=== PATIENT | female | born 1990 | race African-American/Black ===

== ENCOUNTER 2019-05-19 11:19 | Emergency (ER) | payer OTHER ==
--- NOTE | 2019-05-19 11:31 | ER Document Report ---
ED Medical Screen (RME) - General Chief Complaint: Vag Bleeding, +preg <12wks Stated Complaint: ABDOMINAL CRAMPS/VAGINAL BLEEDING Time Seen by Provider: 05/19/19 11:28 Notes: Patient is a 28-year-old female G7, P6 presents to the emergency department for vaginal bleeding. Patient voices she thinks she is approximately 8 weeks . She did go to her [facility] who recently did an ultrasound measuring approximately 5 weeks. Patient voices this morning she had some generalized lower abdominal cramping and when she wiped after using the restroom saw bright red blood. Patient voices she did place a pad but has not soaked through said pad. GENERAL: Alert, interacts well. No acute distress. LUNGS: Clear to auscultation bilaterally, no wheezes, rales, or rhonchi. No respiratory distress. ABDOMEN: Soft, non-tender. Non-distended. Bowel sounds present in all 4 quadrants. I have greeted and performed a rapid initial assessment of this patient. A comprehensive ED assessment and evaluation of the patient, analysis of test results and completion of the medical decision making process will be conducted by additional ED providers. I have specifically instructed the patient or family members with the patient to immediately return to any nursing staff should anything change in the patient's condition or with their chief complaint. This medical record was dictated with voice recognizing software. There may be grammatical, syntax errors that are unintended. - Related Data Allergies/Adverse Reactions: lactose Allergy (Verified 05/19/19 11:27) latex Allergy (Verified 05/19/19 11:27) No Known Drug Allergies Allergy (Verified 05/19/19 11:27) Physical Exam - Vital signs Vitals: Temp Pulse BP Pulse Ox 97.9 F 66 116/71 100 05/19/19 11:26 05/19/19 11:26 05/19/19 11:26 05/19/19 11:26 Course - Vital Signs Vital signs: Temp Pulse Resp BP Pulse Ox 97.9 F 66 116/71 100 05/19/19 11:26 05/19/19 11:26 05/19/19 11:26 05/19/19 11:26
[2019-05-19 12:42] LABS: ABSOLUTE BASOPHILS # (AUTO) 0.1 10^3/uL (0.0-0.2); ABSOLUTE EOSINOPHILS # (AUTO) 0.4 10^3/uL (0.0-0.6); ABSOLUTE LYMPHOCYTES (AUTO) 1.8 10^3/uL (0.5-4.7); ABSOLUTE MONOCYTES (AUTO) 0.5 10^3/uL (0.1-1.4); ABSOLUTE NEUT (AUTO) 7.3 10^3/uL (1.7-8.2); BASOPHILS % (AUTO) 0.5 % (0-2); EOSINOPHILS % (AUTO) 3.8 % (0-6); HEMATOCRIT 38.2 % (36.0-47.0); LYMPHOCYTES % (AUTO) 17.7 % (13-45); MEAN CORPUSCULAR HEMOGLOBIN 28.8 pg (27.0-33.4); MEAN CORPUSCULAR HGB CONC 34.1 g/dL (32.0-36.0); MEAN CORPUSCULAR VOLUME 85 fl (80-97); MONOCYTES % (AUTO) 4.9 % (3-13); PLATELET COUNT 318 10^3/uL (150-450); RED BLOOD COUNT 4.51 10^6/uL (3.72-5.28); SEGMENTED NEUTROPHILS % (AUTO) 73.1 % (42-78); TOTAL CELLS COUNTED % (AUTO) 100 %
[2019-05-19 12:53] LABS: APPEARANCE,URINE CLEAR; BILIRUBIN,URINE NEGATIVE (NEGATIVE); COLOR,URINE STRAW; GLUCOSE, URINE NEGATIVE (NEGATIVE); KETONES,URINE 20 mg/dL (NEGATIVE); LEUKOCYTE ESTERASE,URINE NEGATIVE (NEGATIVE); NITRITE,URINE NEGATIVE (NEGATIVE); PROTEIN,URINE NEGATIVE (NEGATIVE); URINE SPECIFIC GRAVITY 1.009; UROBILINOGEN,URINE NEGATIVE mg/dL (<2.0)
--- NOTE | 2019-05-19 12:54 | RADIOLOGY REPORT (SQ) ---
EXAM DESCRIPTION: U/S OB TRANSVAG W/DOPPLER COMPLETED DATE/TIME: 05/19/2019 12:22 pm REASON FOR STUDY: +preg and bleeding COMPARISON: None. TECHNIQUE: Transvaginal static and realtime grayscale images acquired of the pelvis. Additional nadia cted spectral and color Doppler images recorded. All images stored on PACs. bHCG: Pending. CLINICAL DATES: LMP 03/28/2019 7 weeks 3 days LIMITATIONS: None. FINDINGS: There is the appearance of an abnormal gestational sac. No pole is present. There is an 18 x 29 x 31 mm mass of mixed echogenicity either in the gestational sac or adjacent to it. UTERUS: See above. CERVICAL LENGTH: 2.7 cm. Closed. RIGHT ADNEXA: Normal ovary with normal vascular flow. 3.1 x 2.3 x 1.8 cm. No adnexal free fluid. No adnexal masses. LEFT ADNEXA: Normal ovary with normal vascular flow. 2.3 x 3.1 x 3.7 cm. There is an 18 x 18 x 24 m m cyst. No adnexal free fluid. No adnexal masses. FREE FLUID: None. OTHER: No other significant finding. IMPRESSION: No identifiable pole is seen. Cannot exclude a molar . Follow-up as cli nically indicated. TECHNICAL DOCUMENTATION: JOB ID: [id number] [email or web address]- All Rights Reserved rev Reading location - IP/workstation name: [email or web address]
[2019-05-19 13:01] LABS: ANION GAP 10 (5-19); BLOOD UREA NITROGEN 10 mg/dL (7-20); CALCIUM 9.3 mg/dL (8.4-10.2); CARBON DIOXIDE 24 mmol/L (22-30); CHLORIDE 103 mmol/L (98-107); GLUCOSE 80 mg/dL (75-110); POTASSIUM 4.1 mmol/L (3.6-5.0)
--- NOTE | 2019-05-19 13:02 | ER Document Report ---
ED GI/ - General Chief Complaint: Vag Bleeding, +preg <12wks Stated Complaint: ABDOMINAL CRAMPS/VAGINAL BLEEDING Time Seen by Provider: 05/19/19 11:28 Primary Care Provider: ROSMERY ORDAZ MD [Primary Care Provider] - Follow up as needed Notes: Patient is a 28-year-old female G7, P6 who presents to the emergency department with a chief complaint of vaginal bleeding. Patient reports this morning she felt some lower abdominal pressure and as she went to urinate she wiped with the toilet paper and noticed bright red blood on the tissue. Patient denies blood clots. Patient reports she did put a pad on afterwards but has not noticed any more bleeding. Patient reports she did have her last menstrual cycle on March 28. She reports that she did follow-up with [facility] on May 16 in which she did have an ultrasound. She states at that time she was told she was 5 weeks and 2 days . Patient reports that the lower abdominal cramping started today. Patient denies urinary symptoms. Patient denies vaginal discharge prior to the bleeding. TRAVEL OUTSIDE OF THE [place] IN LAST 30 DAYS: No - Related Data Allergies/Adverse Reactions: lactose Allergy (Verified 05/19/19 11:35) latex Allergy (Verified 05/19/19 11:35) No Known Drug Allergies Allergy (Verified 05/19/19 11:35) nut - unspecified Allergy (Verified 05/19/19 11:35) shellfish derived Allergy (Verified 05/19/19 11:35) Past Medical History - General Information source: Patient - Social History Smoking Status: Never Smoker Chew tobacco use (# tins/day): No Frequency of alcohol use: None Drug Abuse: None Lives with: Spouse/Significant other Family History: None Patient has suicidal ideation: No Patient has homicidal ideation: No - Past Medical History Cardiac Medical History: Reports: None Pulmonary Medical History: Reports: Hx Asthma EENT Medical History: Reports: None Neurological Medical History: Reports: None Endocrine Medical History: Reports: None Renal/ Medical History: Reports: None Malignancy Medical History: Reports: None GI Medical History: Reports: None Musculoskeletal Medical History: Reports None Skin Medical History: Reports None Psychiatric Medical History: Reports: None Traumatic Medical History: Reports: None Infectious Medical History: Reports: None Past Surgical History: Reports: None Review of Systems - Review of Systems Constitutional: No symptoms reported EENT: No symptoms reported Cardiovascular: No symptoms reported Respiratory: See HPI Gastrointestinal: See HPI Genitourinary: No symptoms reported Female Genitourinary: See HPI Musculoskeletal: No symptoms reported Skin: No symptoms reported Hematologic/Lymphatic: No symptoms reported Neurological/Psychological: No symptoms reported Physical Exam - Vital signs Vitals: Temp Pulse BP Pulse Ox 97.9 F 66 116/71 100 05/19/19 11:26 05/19/19 11:26 05/19/19 11:26 05/19/19 11:26 - Notes Notes: GENERAL: Well-appearing, well-nourished and in no acute distress. HEAD: Atraumatic, normocephalic. EYES: Pupils equal round and reactive to light, extraocular movements intact, sclera anicteric, conjunctiva are normal. ENT: Nares patent, oropharynx clear without exudates. Moist mucous membranes. NECK: Normal range of motion, supple without lymphadenopathy or JVD. LUNGS: Breath sounds clear to auscultation bilaterally and equal. No wheezes rales or rhonchi. HEART: Regular rate and rhythm without murmurs, rubs or gallops. ABDOMEN: Soft, nontender, normoactive bowel sounds. No guarding, no rebound. No masses appreciated. BACK: No cervical, thoracic, lumbar midline tenderness. No saddle anesthesia, normal distal neurovascular exam. GENITOURINARY: Deferred. EXTREMITIES: Normal range of motion, no pitting or edema. No clubbing or cyanosis. NEUROLOGICAL: Cranial nerves II through XII grossly intact. Normal speech, normal gait. PSYCH: Normal mood, normal affect. SKIN: Warm, Dry, normal turgor, no rashes or lesions noted. Course - Re-evaluation Re-evalutation: 05/19/19 13:38 [address] did speak [address] Arita, our on-call OBGYN to report the patient's quant and ultrasound read. She states that it sounds like the patient is having impending miscarriage. She reports that the patient needs to follow-up at [facility] on Thursday for repeat quant and ultrasound. She states that the patient can take ibuprofen 800 mg 3 times a day as needed for her discomfort, as it does sound like she is miscarrying due to the abnormal gestational sac. She states for the patient to return to the emergency department over the weekend if she is saturating > 2 pads in 1 hour. I did discuss the findings with the patient. I did give her strict return precautions. Patient verbalizes understanding. Patient is O+, RhoGam is not indicated. 05/19/19 13:56 - Vital Signs Vital signs: Temp Pulse Resp BP Pulse Ox 97.9 F 66 116/71 100 05/19/19 11:26 05/19/19 11:26 05/19/19 11:26 05/19/19 11:26 - Laboratory Result Diagrams: 05/19/19 12:20 05/19/19 12:20 Laboratory results interpreted by me: 05/19/19 05/19/19 12:20 12:20 Sodium 136.9 L Creatinine 0.41 L Beta HCG, Quant 9697.60 H Urine Ketones 20 H Urine Blood SMALL H - Diagnostic Test Radiology reviewed: Reports reviewed Radiology results interpreted by me: 05/19/19 13:01 Transvaginal US 05/19/19 11:29 IMPRESSION: No identifiable pole is seen. Cannot exclude a molar . Follow-up as clinically indicated. Discharge - Discharge Clinical Impression: Vaginal bleeding, Threatened miscarriage Condition: Stable Disposition: HOME, SELF-CARE Additional Instructions: Threatened Miscarriage *Today you are seen in the emergency department for vaginal bleeding. Your ultrasound was concerning for an impending miscarriage. I did speak with our irrigation flume layer HEAD DOFFER who does work for [facility]. She does recommend following up with the office on Thursday to have a repeat quant and ultrasound. She states that you can take 800 mg of ibuprofen 3 times a day as needed at this point. Only take this if you are having pain and discomfort. If you do not want to take ibuprofen you can take Tylenol. Please return to the emergency department if you have severe abdominal pain, if you are soaking through more than 2 pads that is saturated in 1 hour. You may start to have more vaginal bleeding that is consistent with a heavy menstrual cycle. Do not douche or have sex for at least a week, or until OK'd by the doctor. *Strict pelvic rest until seen by [facility]* C all the doctor or return for re-examination if there is an increase in bleeding or cramping, or passage of tissue. Prescriptions: Ibuprofen [Motrin 800 mg Tablet] 800 mg PO Q8H PRN #30 tab PRN Reason: Referrals: ROSMERY ORDAZ MD [Primary Care Provider] - Follow up as needed
[2019-05-19 15:07] VITALS: BP 124/70
== END 2019-05-19 14:07 | disposition home or self-care (01) ==
LOC: ER 11:19
DX: O20.0 Threatened abortion (principal); O26.891 Other specified pregnancy related conditions, first trimester; R10.9 Unspecified abdominal pain; R10.30 Lower abdominal pain, unspecified; O99.511 Diseases of the respiratory system complicating pregnancy, first trimester; J45.909 Unspecified asthma, uncomplicated; Z3A.00 Weeks of gestation of pregnancy not specified
CPT/HCPCS: 36415; 76817; 80048; 81001; 84702; 85025; 86900; 86901; 93976; 99284

== ENCOUNTER → 2019-09-21 | Outpatient (CLI) | payer OTHER ==
[2019-09-21 10:55] VITALS: BP 106/66
--- NOTE | 2019-09-21 10:55 | ER RDC ASSESSMENT REPORT ---
Intake - In the Last 14 days Have you traveled outside [place]?: No Have you been in close contact with someone CONFIRMED: No Worked in Healthcare?: No - Symptoms Subjective Fever([place] feverish): No Chills: Yes Muscule Aches: Yes Runny Nose: Yes Sore Throat: Yes Cough (New or worsening chronic cough): Yes Shortness of breath: Yes Nausea or Vomiting: Yes Headache: Yes Abdominal Pain: Yes Diarrhea(3 or more loose stools in last 24 hours): No - Do you have any of the following Chronic lung disease: Asthma or emphysema or COPD: Yes Chronic Lung Disease Comment: asthma Cystic Fibrosis: No Diabetes: No High Blood Pressure: No Cardiovascular Disease: No Chronic Kidney Disease: No Chronic Liver Disease: No Chronic blood disorder like Sickle Cell Disease: No Weak immune system due to disease or medication: No Neurologic condition that limits movement: No Developmental delay - Moderate to Severe: No Recent (within past 2 weeks) or current : No --If current: Trimester: 2nd Comment: 23 weeks Morbid Obesity (>100 pounds over ideal weight): No - Objective Temperature: 96.7 F Pulse Rate: 78 Respiratory Rate: 14 Blood Pressure: 106/66 O2 Sat by Pulse Oximetry: 96 Objective: Given above, testing performed: flu A/B, rapid strep all negative COVID19 sent to [facility] If Testing Performed: Test Specimen Type [facility] Disposition: Home; Selfcare General - General Chief Complaint: Flu Symptoms Stated Complaint: dry cough, SOB x 1 day, cold symptoms Time Seen by Provider: 09/21/19 10:30 Mode of Arrival: Ambulatory Information source: Patient - [facility] Patient complains to provider of: Dry cough, rhinorrhea, headache, emesis x1, shortness of breath Onset: Last week - cold symptoms x 5 days, couhg/sob with exertion x 1 day Onset/Duration: Gradual Quality of pain: No pain Associated symptoms: Body/muscle aches, Chills, Nonproductive cough, Headache, Nausea, Vomiting, Rhinnorhea, Shortness of breath, Sore throat Exacerbated by: Movement, Coughing Relieved by: Remaining still, Other - albuterol TID Similar symptoms previously: No Recently seen / treated by doctor: No - Related Data Allergies/Adverse Reactions: lactose Allergy (Verified 05/19/19 11:35) latex Allergy (Verified 05/19/19 11:35) No Known Drug Allergies Allergy (Verified 05/19/19 11:35) nut - unspecified Allergy (Verified 05/19/19 11:35) shellfish derived Allergy (Verified 05/19/19 11:35) Home Medications: Methimazole 5 mg p.o. daily, albuterol inhaler as needed every 4 H Past Medical History - General Information source: Patient - Social History Smoking Status: Never Smoker Lives with: Family Family History: None - Past Medical History Cardiac Medical History: Reports: Hx Heart Murmur Pulmonary Medical History: Reports: Hx Asthma EENT Medical History: Reports: None Neurological Medical History: Reports: None Endocrine Medical History: Reports: Hx Hyperthyroidism Renal/ Medical History: Reports: None Malignancy Medical History: Reports: None GI Medical History: Reports: None Musculoskeletal Medical History: Reports None Skin Medical History: Reports None Psychiatric Medical History: Reports: None Traumatic Medical History: Reports: None Infectious Medical History: Reports: None Past Surgical History: Reports: None Physical Exam - Vital signs Interpretation: Normal - General General appearance: Appears well, Alert In distress: None Notes: PHYSICAL EXAMINATION: GENERAL: Well-appearing and in no acute distress. HEAD: Atraumatic, normocephalic. EYES: sclera anicteric, conjunctiva are normal. ENT: nares patent. + clear rhinorrhea. Moist mucous membranes. NECK: Normal range of motion, supple without lymphadenopathy LUNGS: CTAB and equal. No wheezes rales or rhonchi. HEART: Regular rate and rhythm, + murmur ABDOMEN: Gravid, nontender, normal bowel sounds, no guarding. EXTREMITIES: Normal range of motion, no pitting edema. No cyanosis. NEUROLOGICAL: Cranial nerves grossly intact. Normal speech. PSYCH: Normal mood, normal affect. SKIN: Warm, Dry, normal turgor. Patient Education/Counseling Counseling/Education: Patient presents with upper respiratory symptoms worrisome for possible Covid 19. Patient does not have emergency worrying symptoms such as moderate to severe dyspnea or shortness of breath, chest pain, pressure, confusion or cyanosis. Patient appears suitable for discharge. Patient's vital signs are stable and patient is nontoxic in appearance. Good return precautions have been discussed with patient, patient verbalized understanding and is agreeable with discharge plan of care at this time. Guidance for worsening S/SX: As a person under investigation for Covid 19, the [facility], division of public health advises you to adhere to the following guidance until your test results are reported to you. If your test result is positive, you will receive additional information from your provider and your local health department at that time. Remain at home until you are cleared by the health provider or public health authorities. Keep a log of visitors to your home, notify any visitors to your home of your isolation status. If you plan to move to a new address or leave the county, notify the local health department in your County. Call your doctor or seek care if you have an urgent medical need. Before seeking medical care, call ahead to get instructions from the provider before arriving at the medical office clinic or hospital. Notify them that you are being tested for the virus that causes Covid 19 so that arrangements can be made, as necessary, to prevent transmission to others in the healthcare setting. Next, notify the local health department in your county. If a medical emergency arises and you need to call 911, inform the first responders that you are being tested for the virus that causes Covid 19. Next, notify the local health department in your county. RDC Discharge - Discharge Clinical Impression: COVID 19 screen URI (upper respiratory infection) Qualifiers: URI type: unspecified URI Qualified Code(s): J06.9 - Acute upper respiratory infection, unspecified Condition: Stable Disposition: Home; Selfcare
[2019-09-21 11:29] LABS: A TYPE INFLUENZA AG NEGATIVE (NEGATIVE); B INFLUENZA AG NEGATIVE (NEGATIVE)
== END ==
LOC: RDC 09:46
PROVIDERS: ATTEND Nurse Practitioner Family
DX: O99.512 Diseases of the respiratory system complicating pregnancy, second trimester (principal); J06.9 Acute upper respiratory infection, unspecified; J45.909 Unspecified asthma, uncomplicated; Z20.828 Contact with and (suspected) exposure to other viral communicable diseases; M79.10 Myalgia, unspecified site; R05 Cough; R09.89 Other specified symptoms and signs involving the circulatory and respiratory systems; R06.02 Shortness of breath; R11.0 Nausea; R10.9 Unspecified abdominal pain; Z3A.23 23 weeks gestation of pregnancy
CPT/HCPCS: 87070; 87635; 87804; 87880

== ENCOUNTER 2019-11-22 08:19 | Emergency (ER) | payer OTHER ==
[2019-11-22 09:54] LABS: APPEARANCE,URINE SLIGHTLY-CLOUDY; BILIRUBIN,URINE NEGATIVE (NEGATIVE); COLOR,URINE YELLOW; GLUCOSE, URINE NEGATIVE (NEGATIVE); HEMATOCRIT 34.8 % (36.0-47.0); KETONES,URINE TRACE mg/dL (NEGATIVE); LEUKOCYTE ESTERASE,URINE TRACE (NEGATIVE); MEAN CORPUSCULAR HEMOGLOBIN 27.4 pg (27.0-33.4); MEAN CORPUSCULAR HGB CONC 34.5 g/dL (32.0-36.0); MEAN CORPUSCULAR VOLUME 80 fl (80-97); NITRITE,URINE NEGATIVE (NEGATIVE); PLATELET COUNT 206 10^3/uL (150-450); PROTEIN,URINE NEGATIVE (NEGATIVE); RED BLOOD COUNT 4.37 10^6/uL (3.72-5.28); RED CELL DISTRIBUTION WIDTH 14.8 % (11.5-14.0); URINE SPECIFIC GRAVITY 1.017; UROBILINOGEN,URINE NEGATIVE mg/dL (<2.0); WHITE BLOOD COUNT 10.1 10^3/uL (4.0-10.5)
[2019-11-22 10:06] LABS: ALBUMIN 3.3 g/dL (3.5-5.0); ALKALINE PHOSPHATASE 103 U/L (38-126); ASPARTATE AMINO TRANSFERASE 24 U/L (14-36); BILIRUBIN,TOTAL 0.4 mg/dL (0.2-1.3); BLOOD UREA NITROGEN 9 mg/dL (7-20); CALCIUM 8.9 mg/dL (8.4-10.2); CARBON DIOXIDE 24 mmol/L (22-30); CHLORIDE 105 mmol/L (98-107); CREATINE KINASE 28 U/L (30-135); GLUCOSE 78 mg/dL (75-110); POTASSIUM 3.8 mmol/L (3.6-5.0); TOTAL PROTEIN 6.6 g/dL (6.3-8.2)
[2019-11-22 10:17] LABS: ANION GAP 4 (5-19)
[2019-11-22 10:25] LABS: ABSOLUTE LYMPHOCYTES# (MANUAL) 1.6 10^3/uL (0.5-4.7); ABSOLUTE MONOCYTES # (MANUAL) 0.4 10^3/uL (0.1-1.4); BASOPHILS % (MANUAL) 0 % (0-2); EOSINOPHILS % (MANUAL) 6 % (0-6); LYMPHOCYTES % (MANUAL) 16 % (13-45); MONOCYTES % (MANUAL) 4 % (3-13); SEGMENTED NEUTROPHILS % (MAN) 74 % (42-78); TOTAL CELLS COUNTED 100
[2019-11-22 10:26] LABS: ANISOCYTOSIS SLIGHT; OVALOCYTES SLIGHT; PLATELET CLUMPS PRESENT; PLATELET COMMENT ADEQUATE; PLATELET LARGE PRESENT; POIKILOCYTOSIS SLIGHT
--- NOTE | 2019-11-22 10:31 | ER Document Report ---
Entered by LUIS YEH SCRIBE 11/22/19 0854 Acting as scribe for:RYDER SALDIVAR MD ED General - General Chief Complaint: Chest Pressure Stated Complaint: CHEST PRESSURE Time Seen by Provider: 11/22/19 08:51 Primary Care Provider: ROSMERY ORDAZ MD [Primary Care Provider] - Follow up as needed Mode of Arrival: Ambulatory Information source: Patient Notes: This 29 year old female patient G7,P6,A0 presents to the emergency department today with complaints of "chest cramping" which began last night. Patient describes her upper substernal "chest cramping" as "contractions in my chest". Patient mentions that it is "sporadic now, but last night it was constant". Patient's LMP was 03/28/19. She is 34 weeks by LMP. Patient states that she went to [facility] to be evaluated this morning and she was sent here. Patient mentions that she was having "minor contractions" sporadically last night. Patient states she was told she had borderline gestational diabetes and has been taking her blood sugars at home and they have never been above the high 100s. The patient reports that she has 6 children at home with the oldest only 12 years old. She states she has no one to help her with her children and is concerned about the chest discomfort and pain she has been having. She states that she needs a letter detailing all of her medical problems to justify having her spouse reassigned from his duty station in [place], [place] to this area. TRAVEL OUTSIDE OF THE [place] IN LAST 30 DAYS: No - Related Data Allergies/Adverse Reactions: lactose Allergy (Verified 05/19/19 11:35) latex Allergy (Verified 05/19/19 11:35) No Known Drug Allergies Allergy (Verified 05/19/19 11:35) nut - unspecified Allergy (Verified 05/19/19 11:35) shellfish derived Allergy (Verified 05/19/19 11:35) Past Medical History - General Information source: Patient - Social History Smoking Status: Never Smoker Cigarette use (# per day): No Frequency of alcohol use: None Drug Abuse: None Lives with: Other - children Family History: None - Past Medical History Cardiac Medical History: Reports: Hx Heart Murmur Pulmonary Medical History: Reports: Hx Asthma Endocrine Medical History: Reports: Hx Hyperthyroidism - [facility] Past Surgical History: Reports: Hx Appendectomy, Hx Oral Surgery - Third molar extractions Review of Systems - Review of Systems Constitutional: No symptoms reported EENT: No symptoms reported Cardiovascular: See HPI, Chest pain Respiratory: No symptoms reported Gastrointestinal: No symptoms reported Genitourinary: No symptoms reported Female Genitourinary: See HPI, Last menstrual period - 03/28/19, Musculoskeletal: No symptoms reported Skin: No symptoms reported Hematologic/Lymphatic: No symptoms reported Neurological/Psychological: No symptoms reported -: Yes All other systems reviewed and negative Physical Exam - Vital signs Vitals: Resp BP Pulse Ox 17 123/77 98 11/22/19 08:43 11/22/19 08:43 11/22/19 08:43 - Notes Notes: Physical Exam: General: Alert, appears well. Gravid female. HEENT: Normocephalic. Atraumatic. PERRL. Extraocular movements intact. Oropharynx clear. Neck: Supple. Non-tender. Respiratory: No respiratory distress. Clear and equal breath sounds bilaterally. Cardiovascular: Regular rate and rhythm. Abdominal: Gravid uterus. no distension. Normal Bowel Sounds. Back: No gross abnormalities. Extremities: Moves all four extremities. Upper extremities: Normal inspection. Normal ROM. Lower extremities: Normal inspection. No edema. Normal ROM. Neurological: Normal cognition. AAOx4. Normal speech. Psychological: Normal affect. Normal Mood. Skin: Warm. Dry. Normal color. Course - Re-evaluation Re-evalutation: 11/22/19 11:39 I discussed the patient's case at length with Dr. Alexander from the [facility]. She agrees that there is nothing in her history and physical and work-up today that would suggest a reason to write a letter to her spouse's command. She recommends that have the patient follow back up at their clinic to further discuss the problems surrounding this . - Vital Signs Vital signs: Temp Pulse Resp BP Pulse Ox 98.2 F 17 123/77 98 11/22/19 08:46 11/22/19 08:43 11/22/19 08:43 11/22/19 08:43 - Laboratory Result Diagrams: 11/22/19 09:26 11/22/19 09:26 Laboratory results interpreted by me: 11/22/19 11/22/19 11/22/19 09:26 09:26 09:26 Hct 34.8 L RDW 14.8 H Sodium 133.4 L Anion Gap 4 L Creatinine 0.31 L Creatine Kinase 28 L Albumin 3.3 L Urine Ketones TRACE H Ur Leukocyte Esterase TRACE H - EKG Interpretation by Me EKG shows normal: Sinus rhythm, [place], Intervals, QRS Complexes, ST-T Waves Rate: Normal - 83 Rhythm: NSR Discharge - Discharge Clinical Impression: Substernal chest pain, 33 weeks gestation of Condition: Stable Disposition: HOME, SELF-CARE Additional Instructions: Chest Pain of Unclear Cause The exact cause of your chest pain isn't clear. Fortunately, there is no evidence of a dangerous medical condition. Further testing may be required to find the source of the pain. Most often, we find that this pain is coming from the chest wall -- the muscles or rib joints in the chest. But chest pain can come from the lung and lung lining, the esophagus, the heart valves or heart lining, and even the stomach or gallbladder. Rest. Eat lightly until the pain is gone. We may prescribe medicine for pain and inflammation. You should call the physician immediately if the pain radiates to the shoulder, jaw or arms; if you start to run a fever or develop a cough; or if you develop shortness of breath, or other new or alarming symptoms. Your evaluation today did not show any abnormalities or explanation for your chest discomfort. The EKG and lab work including cardiac enzymes were all normal. I did discuss your case with Dr. Cande Alexander from the [facility], and she recommended that you follow-up with them in the office to discuss problems surrounding this . Any letters to your spouses command would need to come from either your primary care provider or your [facility] doctors. RETURN TO THE EMERGENCY ROOM IF ANY NEW OR WORSENING SYMPTOMS. Referrals: ROSMERY ORDAZ MD [Primary Care Provider] - Follow up as needed I personally performed the services described in the documentation, reviewed and edited the documentation which was dictated to the scribe in my presence, and it accurately records my words and actions.
[2019-11-22 12:00] VITALS: BP 114/70
--- NOTE | 2019-11-22 19:36 | EKG REPORT ---
SEVERITY:- NORMAL ECG - SINUS RHYTHM : Confirmed by: To Wallace 22-Nov-2019 19:35:23
== END 2019-11-22 12:00 | disposition home or self-care (01) ==
LOC: ER 08:19
DX: O26.893 Other specified pregnancy related conditions, third trimester (principal); R07.2 Precordial pain; O99.513 Diseases of the respiratory system complicating pregnancy, third trimester; J45.909 Unspecified asthma, uncomplicated; Z3A.33 33 weeks gestation of pregnancy; Z91.018 Allergy to other foods; Z91.040 Latex allergy status; Z91.013 Allergy to seafood
CPT/HCPCS: 36415; 80053; 81001; 82550; 84484; 85025; 93005; 93010; 99285